=== PATIENT | female | born 1975 | race Two or more races ===

== ENCOUNTER → 2017-05-05 | Outpatient (CLI) | payer MEDICAID | LOC: OCH 11:21 | PROVIDERS: ATTEND Nurse Practitioner Women's Health | DX: O02.0 Blighted ovum and nonhydatidiform mole (principal) | CPT/HCPCS: 36415; 84702 ==

== ENCOUNTER → 2017-05-08 | Outpatient (CLI) | payer MEDICAID ==
--- NOTE | 2017-05-08 15:51 | RADIOLOGY REPORT (SQ) ---
EXAM DESCRIPTION: U/S [id number] TRNABD 1GES W/ODOP COMPLETED DATE/TIME: 05/08/2017 1:37 pm REASON FOR STUDY: THREATENED O20.0 THREATENED COMPARISON: None. TECHNIQUE: Transabdominal static and realtime grayscale images acquired of the pelvis. Additional se lected spectral and color Doppler images recorded. All images stored on PACs. BHCG: Not available. LIMITATIONS: None. FINDINGS: UTERUS: No visualized intrauterine . Small amount of fluid in the endometrial ca vity. RIGHT ADNEXA: Normal ovary with normal vascular flow. No adnexal free fluid. No adnexal masses. LEFT ADNEXA: Normal ovary with normal vascular flow. No adnexal free fluid. No adnexal masses. FREE FLUID: None. OTHER: None. IMPRESSION: NO VISUALIZED INTRA- OR EXTRAUTERINE . bHCG LEVEL NOT AVAILABLE FOR CORRELATION WITH US FINDINGS. ECTOPIC CANNOT BE EXCLUDED. FOLLOW-UP ULTRASOUND AND SERIAL BHCG LEVELS STRONGLY RECOMMENDED TO ACCURATELY ASSESS STATU S. TECHNICAL DOCUMENTATION: JOB ID: [id number] [employer]- All Rights Reserved
== END ==
LOC: RAD 12:44
PROVIDERS: ATTEND Nurse Practitioner Women's Health
DX: O20.0 Threatened abortion (principal)
CPT/HCPCS: 36415; 76801; 84702

== ENCOUNTER 2017-10-31 10:39 | Emergency (ER) | payer MEDICAID ==
--- NOTE | 2017-10-31 11:11 | ER Document Report ---
ED Medical Screen (RME) - General Mode of Arrival: Ambulatory Information source: Patient TRAVEL OUTSIDE OF THE [place] IN LAST 30 DAYS: No <MALACHI BARKER - Last Filed: 10/31/17 12:40> <DAVID CAMPBELL - Last Filed: 10/31/17 13:26> - General Chief Complaint: Vaginal Bleeding Stated Complaint: VAGINAL BLEEDING Time Seen by Provider: 10/31/17 10:45 Notes: Patient is a 42 year old female with a history of miscarriages presents to the emergency department complaining of vaginal bleeding. The patient is currently 6 weeks . Patient describes her vaginal bleeding as dark red when she wipes in the bathroom. Last menstrual period was 09/17/2017. I have greeted and performed a rapid initial assessment of this patient. A comprehensive ED assessment and evaluation of the patient, analysis of test results and completion of the medical decision making process will be conducted by additional ED providers. (MALACHI BARKER) - Related Data Allergies/Adverse Reactions: prednisone Allergy (Verified 10/31/17 10:42) Home Medications: Current Home Medications Pnv No.95/Ferrous Fum/Folic AC [ Multivitamin Tablet] 1 each PO DAILY [History] Past Medical History - General Information source: Patient - Social History Chew tobacco use (# tins/day): No Frequency of alcohol use: None Drug Abuse: None Renal/ Medical History: Denies: Hx Peritoneal Dialysis Past Surgical History: Reports: Hx Orthopedic Surgery - Right knee <MALACHI BARKER - Last Filed: 10/31/17 12:40> Physical Exam - General General appearance: Appears well, Alert In distress: None - HEENT Head: Normocephalic, Atraumatic Eyes: Normal Conjunctiva: Normal - Respiratory Respiratory status: No respiratory distress Chest status: Nontender Breath sounds: Normal - Cardiovascular Rhythm: Regular Heart sounds: Normal auscultation <MALACHI BARKER - Last Filed: 10/31/17 12:40> - Vital signs Vitals: Temp Pulse Resp BP Pulse Ox 97.8 F 68 20 116/60 98 10/31/17 10:45 10/31/17 10:45 10/31/17 10:45 10/31/17 10:45 10/31/17 10:45 Course - Laboratory Result Diagrams: 10/31/17 11:11 10/31/17 11:11 <MALACHI BARKER - Last Filed: 10/31/17 12:40> - Laboratory Result Diagrams: 10/31/17 11:11 10/31/17 11:11 <DAVID CAMPBELL - Last Filed: 10/31/17 13:26> - Re-evaluation Re-evalutation: 10/31/17 13:26 I personally performed the services described in the documentation, reviewed and edited the documentation which was dictated to the scribe in my presence, and it accurately records my words and actions. (DAVID CAMPBELL) - Vital Signs Vital signs: Temp Pulse Resp BP Pulse Ox 97.6 F 71 18 110/61 99 10/31/17 13:08 10/31/17 13:08 10/31/17 13:08 10/31/17 13:08 10/31/17 13:08 - Laboratory Laboratory results interpreted by me: 10/31/17 10/31/17 10/31/17 11:11 11:11 11:11 WBC 14.9 H RDW 14.5 H Absolute Neutrophils 11.3 H Alkaline Phosphatase 37 L Beta HCG, Quant 32698.00 H Urine Blood LARGE H Ur Leukocyte Esterase TRACE H Doctor's Discharge <MALACHI BARKER - Last Filed: 10/31/17 12:40> <DAVID CAMPBELL - Last Filed: 10/31/17 13:26> - Discharge Clinical Impression: Spotting in early Condition: Good Disposition: HOME, SELF-CARE Instructions: Bleeding During Early ([facility]), [facility], [facility] ([facility]) Additional Instructions: Return to the emergency room for increased cramping or bleeding No sex for a week you will be following up in the health department or [facility] Ximn-[id number]-[id number] multivitamin daily Return to the outpatient lab for repeat quantitative test on November 02, 2017. If the number is going up you are still if the number is going down you are having a miscarriage Forms: Follow-Up Laboratory Testing Scribe Documentation - Scribe Written by Scribe:: Thang Garber, 10/31/2017 acting as scribe for :: Clara <MALACHI BARKER - Last Filed: 10/31/17 12:40>
[2017-10-31 11:43] LABS: ABSOLUTE EOSINOPHILS # (AUTO) 0.2 10^3/uL (0.0-0.6); ABSOLUTE LYMPHOCYTES (AUTO) 2.6 10^3/uL (0.5-4.7); ABSOLUTE MONOCYTES (AUTO) 0.8 10^3/uL (0.1-1.4); ABSOLUTE NEUT (AUTO) 11.3 10^3/uL (1.7-8.2); BASOPHILS % (AUTO) 0.3 % (0-2); EOSINOPHILS % (AUTO) 1.7 % (0-6); HEMATOCRIT 40.5 % (36.0-47.0); HEMOGLOBIN 13.4 g/dL (12.0-15.5); LYMPHOCYTES % (AUTO) 17.5 % (13-45); MEAN CORPUSCULAR HEMOGLOBIN 29.1 pg (27.0-33.4); MEAN CORPUSCULAR VOLUME 88 fl (80-97); MONOCYTES % (AUTO) 5.2 % (3-13); PLATELET COUNT 240 10^3/uL (150-450); RED BLOOD COUNT 4.59 10^6/uL (3.72-5.28); RED CELL DISTRIBUTION WIDTH 14.5 % (11.5-14.0); SEGMENTED NEUTROPHILS % (AUTO) 75.3 % (42-78); TOTAL CELLS COUNTED % (AUTO) 100 %; WHITE BLOOD COUNT 14.9 10^3/uL (4.0-10.5)
--- NOTE | 2017-10-31 11:52 | ER Document Report ---
ED GI/ - General Chief Complaint: Vaginal Bleeding Stated Complaint: VAGINAL BLEEDING Time Seen by Provider: 10/31/17 10:45 Mode of Arrival: Ambulatory Information source: Patient Notes: 42-year-old female complaining of brown vaginal spotting. LMP September 17. Positive iruc-trz-[id number] test 2 a week and a half ago. Last night she had some left low back pain today she had some mild pelvic cramping. No vaginal discharge or odor. No STD history. States she has never had a Pap smear. No dysuria, no fever. TRAVEL OUTSIDE OF THE [place] IN LAST 30 DAYS: No - Related Data Allergies/Adverse Reactions: prednisone Allergy (Verified 10/31/17 10:42) Home Medications: Current Home Medications Pnv No.95/Ferrous Fum/Folic AC [ Multivitamin Tablet] 1 each PO DAILY [History] Past Medical History - General Information source: Patient - Social History Smoking Status: Former Smoker Chew tobacco use (# tins/day): No Frequency of alcohol use: None Drug Abuse: None Lives with: Family Family History: None Patient has suicidal ideation: No Patient has homicidal ideation: No - Medical History Medical History: Negative Renal/ Medical History: Denies: Hx Peritoneal Dialysis Past Surgical History: Reports: Hx Orthopedic Surgery - Right knee Review of Systems - Review of Systems Constitutional: No symptoms reported EENT: No symptoms reported Cardiovascular: No symptoms reported Respiratory: No symptoms reported Gastrointestinal: No symptoms reported Genitourinary: No symptoms reported Female Genitourinary: See HPI Musculoskeletal: No symptoms reported Skin: No symptoms reported Hematologic/Lymphatic: No symptoms reported Neurological/Psychological: No symptoms reported Physical Exam - Vital signs Vitals: Temp Pulse Resp BP Pulse Ox 97.8 F 68 20 116/60 98 10/31/17 10:45 10/31/17 10:45 10/31/17 10:45 10/31/17 10:45 10/31/17 10:45 Interpretation: Normal - General General appearance: Appears well, Alert - HEENT Head: Normocephalic, Atraumatic Eyes: Normal Pupils: PERRL - Respiratory Respiratory status: No respiratory distress Chest status: Nontender Breath sounds: Normal Chest palpation: Normal - Cardiovascular Rhythm: Regular Heart sounds: Normal auscultation Murmur: No - Abdominal Inspection: Normal Distension: No distension Bowel sounds: Normal Tenderness: Nontender. No: Tender Organomegaly: No organomegaly - Back Back: Normal, Nontender. No: CVA tenderness - Extremities General upper extremity: Normal inspection, Nontender, Normal color, Normal ROM , Normal temperature General lower extremity: Normal inspection, Nontender, Normal color, Normal ROM , Normal temperature, Normal weight bearing. No: Sheila's sign - Neurological Neuro grossly intact: Yes Cognition: Normal Orientation: AAOx4 Rodrigo Coma Scale Eye Opening: Spontaneous Rodrigo Coma Scale Verbal: Oriented [place]nut Coma Scale Motor: Obeys Commands [place]nut Coma Scale Total: 15 Speech: Normal Motor strength normal: LUE, RUE, LLE, RLE Sensory: Normal - Psychological Associated symptoms: Normal affect, Normal mood - Skin Skin Temperature: Warm Skin Moisture: Dry Skin Color: Normal Skin irregularity: negative: Rash Course - Re-evaluation Re-evalutation: 10/31/17 12:50 Patient has less brown spotting when she urinated in the ER than she did at home this morning. Blood type is O+. Ultrasound shows a gestational sac with no pole or yolk sac. CBC shows WBCs of 14.9 with no shift. Urinalysis is negative for infection. Pelvis is nontender. They had to dilute the quantitative test so that result is pending. I will have her return in 48 hours for repeat quantitative test sooner if there is any increased cramping or bleeding. quantitative 18,164 which is consistant with 5- 6 weeks. - Vital Signs Vital signs: Temp Pulse Resp BP Pulse Ox 97.6 F 71 18 110/61 99 10/31/17 13:08 10/31/17 13:08 10/31/17 13:08 10/31/17 13:08 10/31/17 13:08 - Laboratory Result Diagrams: 10/31/17 11:11 10/31/17 11:11 Laboratory results interpreted by me: 10/31/17 10/31/17 10/31/17 11:11 11:11 11:11 WBC 14.9 H RDW 14.5 H Absolute Neutrophils 11.3 H Alkaline Phosphatase 37 L Beta HCG, Quant 52053.00 H Urine Blood LARGE H Ur Leukocyte Esterase TRACE H Discharge - Discharge Clinical Impression: Spotting in early Condition: Good Disposition: HOME, SELF-CARE Instructions: Bleeding During Early ([facility]), [facility] [place], [facility] ([facility]) Additional Instructions: Return to the emergency room for increased cramping or bleeding No sex for a week you will be following up in the health department or [facility] Rdhg-lzu-icnkjbb multivitamin daily Return to the outpatient lab for repeat quantitative test on November 02, 2017. If the number is going up you are still if the number is going down you are having a miscarriage Forms: Follow-Up Laboratory Testing
[2017-10-31 11:55] LABS: APPEARANCE,URINE SLIGHTLY-CLOUDY; BILIRUBIN,URINE NEGATIVE (NEGATIVE); COLOR,URINE YELLOW; GLUCOSE, URINE NEGATIVE (NEGATIVE); KETONES,URINE NEGATIVE (NEGATIVE); LEUKOCYTE ESTERASE,URINE TRACE (NEGATIVE); NITRITE,URINE NEGATIVE (NEGATIVE); PROTEIN,URINE NEGATIVE (NEGATIVE); URINE SPECIFIC GRAVITY 1.024; UROBILINOGEN,URINE NEGATIVE mg/dL (<2.0)
[2017-10-31 12:20] LABS: ALANINE AMINOTRANSFERASE 32 U/L (9-52); ALBUMIN 4.5 g/dL (3.5-5.0); ALKALINE PHOSPHATASE 37 U/L (38-126); ANION GAP 13 (5-19); ASPARTATE AMINO TRANSFERASE 31 U/L (14-36); BILIRUBIN,DIRECT 0.3 mg/dL (0.0-0.4); BILIRUBIN,TOTAL 0.6 mg/dL (0.2-1.3); BLOOD UREA NITROGEN 12 mg/dL (7-20); CALCIUM 9.9 mg/dL (8.4-10.2); CARBON DIOXIDE 24 mmol/L (22-30); CHLORIDE 102 mmol/L (98-107); GLUCOSE 85 mg/dL (75-110); SODIUM 139.2 mmol/L (137-145); TOTAL PROTEIN 7.6 g/dL (6.3-8.2)
--- NOTE | 2017-10-31 12:22 | RADIOLOGY REPORT (SQ) ---
EXAM DESCRIPTION: U/S OB TRANSVAGINAL W/O DOP COMPLETED DATE/TIME: 10/31/2017 12:12 pm REASON FOR STUDY: bleeding COMPARISON: None. TECHNIQUE: Transvaginal static and realtime grayscale images acquired of the pelvis. Additional miguel cted spectral and color Doppler images recorded. All images stored on PACs. bHCG: Pending. LIMITATIONS: None. FINDINGS: UTERUS: No masses. Possible bicornuate configuration. GESTATIONAL SAC: Intrauterine gestational sac. Measurements correspond with 5 week 5 day gestation. YOLK SAC: No. POLE: No. RIGHT ADNEXA: Normal ovary with normal vascular flow. No adnexal free fluid. No adnexal masses. LEFT ADNEXA: Ovary not identified. No adnexal free fluid. No adnexal masses. FREE FLUID: None. OTHER: No other significant finding. IMPRESSION: POSSIBLE EARLY INTRAUTERINE . PROBABLE INTRAUTERINE GESTATIONAL SAC WITH NO YO LK SAC OR POLE AT THIS TIME. POSSIBLE BICORNUATE CONFIGURATION OF THE UTERUS. BHCG LEVEL NOT AVAILABLE FOR CORRELATION WITH US FINDINGS. CONSIDER F/U BHCG AND/OR ULTRASOUND FOR VERIFICATION OF NORMAL DEVELOPMENT AND TO EXCLUDE ECTOPIC PRE GNANCY. Trimester of : First - 0 to 13 weeks. TECHNICAL DOCUMENTATION: JOB ID: [id number] [employer]- All Rights Reserved
[2017-10-31 13:09] VITALS: BP 110/61
== END 2017-10-31 13:10 | disposition home or self-care (01) ==
LOC: ER 10:39
DX: O26.859 Spotting complicating pregnancy, unspecified trimester (principal); O26.899 Other specified pregnancy related conditions, unspecified trimester; R10.2 Pelvic and perineal pain; O99.89 Other specified diseases and conditions complicating pregnancy, childbirth and the puerperium; M54.5 Low back pain; Z3A.00 Weeks of gestation of pregnancy not specified; Z88.8 Allergy status to other drugs, medicaments and biological substances; Z87.891 Personal history of nicotine dependence
CPT/HCPCS: 36415; 76817; 80053; 81001; 84702; 85025; 86900; 86901; 99284

== ENCOUNTER → 2017-11-02 | Outpatient (CLI) | payer MEDICAID | LOC: LAB 10:05 | PROVIDERS: ATTEND Nurse Practitioner Family | DX: O26.859 Spotting complicating pregnancy, unspecified trimester (principal) | CPT/HCPCS: 36415; 84702 ==

== ENCOUNTER 2017-11-13 12:32 | Emergency (ER) | payer MEDICAID ==
--- NOTE | 2017-11-13 14:36 | ER Document Report ---
ED GI/ - General Chief Complaint: Vaginal Bleeding Stated Complaint: VAGINAL BLEEDING Time Seen by Provider: 11/13/17 14:29 Mode of Arrival: Ambulatory Information source: Patient, [facility] Records Notes: This 42-year-old female patient comes emergency room reportedly 8 weeks with bright red to dark bleeding and clots today. There is some cramps. She was seen on 10/31/2017 with hCG hormone level of 18,164 on 2016 it was 24,388 Blood type was O+, ultrasound 10/31/2017 showed a 5 week 5 day gestational sac. There is been no ultrasound since then. Patient is A1 TRAVEL OUTSIDE OF THE [place] 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 Lives with: Friend Family History: None Patient has suicidal ideation: No Patient has homicidal ideation: No - Medical History Medical History: Negative Past Surgical History: Reports: Hx Orthopedic Surgery - Right knee Review of Systems - Review of Systems Constitutional: No symptoms reported EENT: No symptoms reported Cardiovascular: No symptoms reported Respiratory: No symptoms reported Gastrointestinal: No symptoms reported Genitourinary: No symptoms reported Female Genitourinary: See HPI, Musculoskeletal: No symptoms reported Skin: No symptoms reported Hematologic/Lymphatic: No symptoms reported Neurological/Psychological: No symptoms reported Physical Exam - Vital signs Vitals: Temp Pulse Resp BP Pulse Ox 98.5 F 76 16 118/69 98 11/13/17 12:43 11/13/17 12:43 11/13/17 12:43 11/13/17 12:43 11/13/17 12:43 Interpretation: Normal - General General appearance: Appears well, Alert In distress: None - HEENT Head: Normocephalic, Atraumatic Eyes: Normal Pupils: PERRL - Respiratory Respiratory status: No respiratory distress Breath sounds: Normal - Cardiovascular Rhythm: Regular Heart sounds: Normal auscultation Murmur: No - Abdominal Inspection: Normal Bowel sounds: Normal Tenderness: Nontender - Back Back: Normal - Extremities General upper extremity: Normal inspection General lower extremity: Normal inspection - Neurological Neuro grossly intact: Yes - Psychological Associated symptoms: Normal affect, Normal mood - Skin Skin Temperature: Warm Skin Moisture: Dry Skin Color: Normal Course - Vital Signs Vital signs: Temp Pulse Resp BP Pulse Ox 98.5 F 76 16 118/69 98 11/13/17 12:43 11/13/17 12:43 11/13/17 12:43 11/13/17 12:43 11/13/17 12:43 - Laboratory Laboratory results interpreted by me: 11/13/17 14:40 Beta HCG, Quant 57978.00 H Discharge - Discharge Clinical Impression: Bleeding in early , 7 weeks gestation of Condition: Stable Disposition: HOME, SELF-CARE Additional Instructions: Bleeding During Early You have been evaluated for passing blood while . While we take this symptom very seriously, most women with your degree of bleeding will go on to have a perfectly normal baby. At this time, there is no indication that a miscarriage will occur. (A miscarriage occurs when the fetus is abnormal. There is no medicine or treatment to prevent it.) You should rest in bed until the symptoms have resolved. Do not douche or have sex for at least a week, or until OK'd by the doctor. Don't use tampons. Call the doctor or return for re-examination if there is an increase in bleeding or cramping, extreme weakness, fainting, new abdominal pain, fever, or passage of tissue. //////////////////////////////////////////////////////////////////////////////// //////////////////////////////////////////////////////////////////////////////// ////////// Your ultrasound shows a living 7 week intrauterine at this time. You should rest in bed until the cramping and bleeding has stopped. Drink plenty of fluids. Follow-up with [facility] or the health department in the next week for recheck. RETURN TO THE EMERGENCY ROOM IF ANY NEW OR WORSENING SYMPTOMS.
--- NOTE | 2017-11-13 17:53 | RADIOLOGY REPORT (SQ) ---
EXAM DESCRIPTION: U/S OB TRANSVAGINAL W/O DOP COMPLETED DATE/TIME: 11/13/2017 5:45 pm REASON FOR STUDY: Cramps with bleeding COMPARISON: 10/31/2017 TECHNIQUE: Transvaginal static and realtime grayscale images acquired of the pelvis. Additional miguel cted spectral and color Doppler images recorded. All images stored on PACs. [id number] LIMITATIONS: None. FINDINGS: FETUS: Living intrauterine . EGA: 7 weeks STAN: 07/02/2018 FHR: 150 beats per minute. SUBCHORIONIC BLEED: No SIZE OF BLEED: Not applicable. UTERUS: No masses. No anomalies. CERVICAL LENGTH: 3.3 cm Closed. RIGHT ADNEXA: Normal ovary with normal vascular flow. No adnexal free fluid. Small complex area is identified in the right ovary measuring 1.4 x 1.6 x 1.1 cm in diameters most co nsistent with a corpus lutein cyst LEFT ADNEXA: Normal ovary with normal vascular flow. No adnexal free fluid. No adnexal masses. FREE FLUID: None. OTHER: No other significant finding. IMPRESSION: LIVING INTRAUTERINE . EGA 7 weeks Trimester of : First - 0 to 13 weeks. TECHNICAL DOCUMENTATION: JOB ID: [id number] [employer]- All Rights Reserved
[2017-11-13 18:22] VITALS: BP 119/65
== END 2017-11-13 18:10 | disposition home or self-care (01) ==
LOC: ER 12:32
DX: O20.9 Hemorrhage in early pregnancy, unspecified (principal); Z3A.01 Less than 8 weeks gestation of pregnancy
CPT/HCPCS: 36415; 76817; 84702; 99284

== ENCOUNTER → 2017-11-27 | Outpatient (CLI) | payer MEDICAID ==
--- NOTE | 2017-11-27 15:30 | RADIOLOGY REPORT (SQ) ---
EXAM DESCRIPTION: U/S [id number] TRNABD 1GES W/ODOP COMPLETED DATE/TIME: 11/27/2017 3:09 pm REASON FOR STUDY: ENCOUNTER FOR SUPERVISION OF OTHER NORMAL , FIRST TRIMESTER Z34.81 ENCOU NTER FOR SUPRVSN OF NORMAL , FIRST TRIM COMPARISON: 11/13/2017. TECHNIQUE: Transvaginal and transabdominal static and realtime grayscale images acquired of the pelv is. Additional selected spectral and color Doppler images recorded. All images stored on PACs. bHCG: Not applicable. LIMITATIONS: None. FINDINGS: FETUS: Living intrauterine . EGA: 9 week 1 day. STAN: 07/01/2018. FHR: 187-195 beats per minute. SUBCHORIONIC BLEED: Yes. SIZE OF BLEED: Complex fluid collection measuring 2.4 x 3.2 x 5.6 cm. UTERUS: No masses. No anomalies. CERVICAL LENGTH: 3.5 cm. Closed. RIGHT ADNEXA: Normal ovary with normal vascular flow. No adnexal free fluid. No adnexal masses. LEFT ADNEXA: Normal ovary with normal vascular flow. No adnexal free fluid. No adnexal masses. FREE FLUID: None. OTHER: No other significant finding. IMPRESSION: LIVING INTRAUTERINE . EGA 9 WEEK 1 DAY. THERE IS A LARGE COMPLEX FLUID COLLECTION CONSISTENT WITH SUBCHORIONIC BLEED. THIS WAS PRESENT ON TH E PRIOR STUDY AND IS SIMILAR IN SIZE ALTHOUGH CURRENTLY HAS A LARGER ANECHOIC COMPONENT CONSISTENT WI RESOLVING BLOOD PRODUCTS. Trimester of : First - 0 to 13 weeks. TECHNICAL DOCUMENTATION: JOB ID: [id number] [email or web address]- All Rights Reserved
== END ==
LOC: RAD 13:58
PROVIDERS: ATTEND Nurse Practitioner Women's Health
DX: O20.8 Other hemorrhage in early pregnancy (principal); O09.521 Supervision of elderly multigravida, first trimester; Z3A.09 9 weeks gestation of pregnancy
CPT/HCPCS: 76801

== ENCOUNTER 2018-06-09 14:40 | Outpatient (CLI) | payer MEDICAID | END 2018-06-09 15:38 | disposition home or self-care (01) | LOC: LC 14:40 | PROVIDERS: ATTEND Obstetrics & Gynecology | PROC: 4A1HXCZ Monitoring of Products of Conception, Cardiac Rate, External Approach (ICD-10-PCS; principal; 2018-06-09) | DX: O24.415 Gestational diabetes mellitus in pregnancy, controlled by oral hypoglycemic drugs (principal); O09.523 Supervision of elderly multigravida, third trimester; Z3A.36 36 weeks gestation of pregnancy | CPT/HCPCS: 59025 ==

== ENCOUNTER 2019-12-28 16:47 | Emergency (ER) | payer MEDICAID ==
[2019-12-28] MEDS ORDERED: IBUPROFEN 800 MG TABLET PO ONE (18:12)
--- NOTE | 2019-12-28 18:16 | ER Document Report ---
ED Flu Like - General Chief Complaint: Flu Symptoms Stated Complaint: FEVER,HEADACHE,SORE THROAT Time Seen by Provider: 12/28/19 18:12 Primary Care Provider: NATHALIE MAZARIEGOS PA-C [Primary Care Provider] - Follow up in 3-5 days Mode of Arrival: Ambulatory Information source: Patient Notes: 44-year-old female presented to ED for complaint of sore throat body aches postn herson drip headache and fever. She states she has been sick for about 2 to 3 days. She states she is been using DayQuil severe. She is on amitriptyline for her chronic back pain. She states she tried to go to work but she was just too weak to tired and just could not do it due to the pain. She states she does vape but does not use any cigarettes alcohol or drugs. She does work at a gas station. She lives with her significant other and children. Her only medications are vitamin B12 vitamin D amitriptyline and control. TRAVEL OUTSIDE OF THE [place] IN LAST 30 DAYS: No - HPI Onset: Other - Couple days Timing/Duration: Worse Quality of pain: Achy Severity: Moderate Pain Level: 2 Associated symptoms: Body/muscle aches, Chills, Nonproductive cough, Fever, Rhinnorhea, Sinus pain/drainage, Sore throat Similar symptoms previously: Yes Recently seen / treated by doctor: No - Related Data Allergies/Adverse Reactions: prednisone Allergy (Verified 11/13/17 12:33) Home Medications: amitripyline. norlita. vitamin b12. vitamin d Past Medical History - General Information source: Patient - Social History Smoking Status: Never Smoker - Vapor cigarette Frequency of alcohol use: None Drug Abuse: None Lives with: Spouse/Significant other - and children Family History: None Patient has suicidal ideation: No Patient has homicidal ideation: No - Past Medical History Cardiac Medical History: Reports: None Pulmonary Medical History: Reports: None EENT Medical History: Reports: None Neurological Medical History: Reports: None Endocrine Medical History: Reports: None Renal/ Medical History: Reports: None Malignancy Medical History: Reports: None GI Medical History: Reports: None Musculoskeletal Medical History: Reports Hx Arthritis, Reports Hx Musculoskeletal Deformity Skin Medical History: Reports None Psychiatric Medical History: Reports: None Traumatic Medical History: Reports: None Infectious Medical History: Reports: None Past Surgical History: Reports: Hx Orthopedic Surgery - Right knee - Immunizations Immunizations up to date: Yes Review of Systems - Review of Systems Constitutional: Chills, Fever, Recent illness EENT: Nose discharge, Sinus pressure, Sinus discharge Cardiovascular: No symptoms reported Respiratory: Cough, Sputum Gastrointestinal: No symptoms reported Genitourinary: No symptoms reported Female Genitourinary: No symptoms reported Musculoskeletal: No symptoms reported Skin: No symptoms reported Hematologic/Lymphatic: No symptoms reported Neurological/Psychological: No symptoms reported -: Yes All other systems reviewed and negative Physical Exam - Vital signs Vitals: Temp Pulse Resp BP Pulse Ox 99.7 F 105 H 18 141/90 H 96 12/28/19 17:37 12/28/19 17:37 12/28/19 17:37 12/28/19 17:37 12/28/19 17:37 Interpretation: Normal - General General appearance: Appears well, Alert - HEENT Head: Normocephalic, Atraumatic Eyes: Normal Pupils: PERRL Ears: Normal External canal: Normal Tympanic membrane: Normal Sinus: Normal Nasal: Purulent discharge, Swelling Mouth/Lips: Normal Mucous membranes: Normal Pharynx: Post nasal drainage Neck: Normal - Respiratory Respiratory status: No respiratory distress Chest status: Nontender Breath sounds: Normal Chest palpation: Normal - Cardiovascular Rhythm: Regular Heart sounds: Normal auscultation Murmur: No - Abdominal Inspection: Normal Distension: No distension Bowel sounds: Normal Tenderness: Nontender Organomegaly: No organomegaly - Back Back: Normal, Nontender - Extremities General upper extremity: Normal inspection, Nontender, Normal color, Normal ROM, Normal temperature General lower extremity: Normal inspection, Nontender, Normal color, Normal ROM, Normal temperature, Normal weight bearing. No: Sheila's sign - Neurological Neuro grossly intact: Yes Cognition: Normal Orientation: AAOx4 Landing Coma Scale Eye Opening: Spontaneous Rodrigo Coma Scale Verbal: Oriented Rodrigo Coma Scale Motor: Obeys Commands Landing Coma Scale Total: 15 Speech: Normal Motor strength normal: LUE, RUE, LLE, RLE Sensory: Normal - Psychological Associated symptoms: Normal affect, Normal mood - Skin Skin Temperature: Warm Skin Moisture: Dry Skin Color: Normal Course - Re-evaluation Re-evalutation: 12/28/19 20:03 After performing a Medical Screening Examination, I estimate there is LOW risk for ACUTE CORONARY SYNDROME, RESPIRATORY FAILURE, SEPSIS OR MENINGITIS, thus I consider the discharge disposition reasonable. I have reevaluated this patient multiple times and no significant life threatening changes are noted. The p atient and I have discussed the diagnosis and risks, and we agree with discharging home with close follow-up. We also discussed returning to the Emergency Department immediately if new or worsening symptoms occur. We have discussed the symptoms which are most concerning (e.g., changing or worsening pain, trouble swallowing or breathing, neck stiffness, fever) that necessitate immediate return. - Vital Signs Vital signs: Temp Pulse Resp BP Pulse Ox 99.2 F 95 18 121/77 96 12/28/19 20:07 12/28/19 20:07 12/28/19 20:07 12/28/19 20:07 12/28/19 20:07 - Diagnostic Test Radiology reviewed: Image reviewed, Reports reviewed Discharge - Discharge Clinical Impression: URI (upper respiratory infection) Qualifiers: URI type: unspecified viral URI Qualified Code(s): J06.9 - Acute upper respiratory infection, unspecified Condition: Stable Disposition: HOME, SELF-CARE Additional Instructions: UPPER RESPIRATORY ILLNESS: You have a viral infection of the respiratory passages -- a "cold." This common infection causes nasal congestion, drainage, and often sore throat and cough. It is highly contagious. The disease usually lasts about 10 to 14 days. There is no "cure" for the viral infection -- it must run its course. If there is a complication, such as bacterial infection in the nose, sinuses, middle ear, or bronchial tubes, antibiotics may be required. The antibiotics won't affect the virus. Drink plenty of fluids. A humidifier may help. An expectorant medication or decongestant may make you more comfortable. Use acetaminophen or ibuprofen for fever or aches. See the doctor if fever persists over two days, if there is any significant worsening of your symptoms, or if you simply fail to improve as expected. You have been recommended treatment with Claritin 10 mg Sudafed 30 mg and Mucinex 600 mg. These are all ydjr-lzo-enpairc medications for cough cold conge stion. You do need to call the go to the pharmacist to get the Sudafed from behind the counter please get a little red pills they are more effective. You could also use Flonase which is [id number] 1 spray each nostril twice a day. You could also use salt soda solution gargles. These will help to remove the drainage from the back your throat. Chloraseptic spray was [id number]-[id number] that will also help with your sore throat. Salt and soda solution gargle 1 quart of water 1 tablespoon of salt 1 teaspoon of baking soda Mixed 3 ingredients together and boil for 1 minute Placed in a covered quart jar Use 1/2 ounce of cold solution to gargle 3 times a day USE OF ACETAMINOPHEN (Tylenol): Acetaminophen may be taken for pain relief or fever control. It's much safer than aspirin, offering a wider range of "safe" dosages. It is safe during . Some brand names are Tylenol, Panadol, Datril, Anacin 3, Tempra, and Liquiprin. Acetaminophen can be repeated every four hours. The following are maximum recommended dosages: >89 pounds or adults 650 mg to 900 mg Acetaminophen can be repeated every four hours. Maximum dose not to exceed 4000 mg a day. SMOKING: If you smoke, you should stop smoking. The tar and chemicals in cigarette smoke are harmful. Smoking has been shown to cause: emphysema chronic bronchitis lung cancer mouth and throat cancer stomach and pancreas cancer premature aging defects In addition, smoking increases ear and lung infections in children of wili franklin. FOLLOW-UP CARE: If you have been referred to a physician for follow-up care, call the physicians office for an appointment as you were instructed or within the next two days. If you experience worsening or a significant change in your symptoms, notify the physician immediately or return to the Emergency Department at any time for re-evaluation. Forms: Return to Work Referrals: NATHALIE MAZARIEGOS PA-C [Primary Care Provider] - Follow up in 3-5 days
[2019-12-28 18:54] LABS: A TYPE INFLUENZA AG NEGATIVE (NEGATIVE); B INFLUENZA AG NEGATIVE (NEGATIVE)
--- NOTE | 2019-12-28 19:35 | RADIOLOGY REPORT (SQ) ---
EXAM DESCRIPTION: CHEST 2 VIEWS COMPLETED DATE/TIME: 12/28/2019 6:58 pm REASON FOR STUDY: Cough congestion fever COMPARISON: None. EXAM PARAMETERS: NUMBER OF VIEWS: two views TECHNIQUE: Digital Frontal and Lateral radiographic views of the chest acquired. RADIATION DOSE: NA LIMITATIONS: none FINDINGS: LUNGS AND PLEURA: No opacities, masses or pneumothorax. No pleural effusion. MEDIASTINUM AND HILAR STRUCTURES: No masses or contour abnormalities. HEART AND VASCULAR STRUCTURES: Heart normal size. No evidence for failure. BONES: No acute findings. HARDWARE: None in the chest. OTHER: No other significant finding. IMPRESSION: NO ACUTE RADIOGRAPHIC FINDING IN THE CHEST. TECHNICAL DOCUMENTATION: JOB ID: [id number] [id number] 2010 [employer] All Rights Reserved Reading location - IP/workstation name: [email or web address]
[2019-12-28 20:08] VITALS: BP 121/77
== END 2019-12-28 20:08 | disposition home or self-care (01) ==
LOC: ER 16:47
DX: J06.9 Acute upper respiratory infection, unspecified (principal); R50.9 Fever, unspecified; R51 Headache; J02.9 Acute pharyngitis, unspecified; M79.10 Myalgia, unspecified site; R09.82 Postnasal drip; M54.9 Dorsalgia, unspecified; G89.29 Other chronic pain; J34.89 Other specified disorders of nose and nasal sinuses; R09.81 Nasal congestion; R09.89 Other specified symptoms and signs involving the circulatory and respiratory systems; Z79.899 Other long term (current) drug therapy; F17.290 Nicotine dependence, other tobacco product, uncomplicated
CPT/HCPCS: 99283; 87070; 87880; 87804; 71046; J3490